=== PATIENT | male | born 1985 | race Caucasian/White ===

== ENCOUNTER 2022-11-11 07:11 | Day surgery (SDC) | payer MEDICAID ==
[2022-11-03 16:10] LABS: BASOPHILS # (AUTO) 0.1 X10'3 (0-0.2); BASOPHILS % (AUTO) 0.9 % (0-1); EOSINOPHILS # (AUTO) 0.2 X10'3 (0-0.9); EOSINOPHILS % (AUTO) 3.4 % (0-6); HEMATOCRIT 46.1 % (42.0-52.0); HEMOGLOBIN 15.8 g/dl (14.0-17.9); LYMPHOCYTES # (AUTO) 2.6 X10'3 (1.1-4.8); LYMPHOCYTES % (AUTO) 36.4 % (21-51); MEAN CORPUSCULAR HEMOGLOBIN 30.4 PG (27.0-31.0); MEAN CORPUSCULAR HGB CONC 34.2 g/dL (33.0-36.5); MEAN CORPUSCULAR VOLUME 88.9 FL (78-98); MEAN PLATELET VOLUME 7.4 FL (7.4-10.4); MONOCYTES # (AUTO) 0.8 X10'3 (0-0.9); MONOCYTES % (AUTO) 11.1 % (2-12); NEUTROPHILS # (AUTO) 3.4 X10'3 (1.8-7.7); NEUTROPHILS % (AUTO) 48.2 % (42-75); PLATELET COUNT 238 X10'3 (140-440); RED BLOOD COUNT 5.19 X10'6 (4.70-6.10); RED CELL DISTRIBUTION WIDTH 13.5 % (11.5-14.5); WHITE BLOOD COUNT 7.1 X10'3 (4.5-11.0)
[2022-11-03 16:27] LABS: ALANINE AMINOTRANSFERASE 70 U/L (12-78); ALBUMIN 3.8 G/DL (3.4-5.0); ALBUMIN/GLOBULIN RATIO 0.9 (1.1-1.5); ALKALINE PHOSPHATASE 63 IU/L (46-116); ANION GAP 11 (8-16); ASPARTATE AMINO TRANSFERASE 51 U/L (10-37); BILIRUBIN,TOTAL 0.5 MG/DL (0.1-1.0); BLOOD UREA NITROGEN 13 MG/DL (7-18); BUN/CREATININE RATIO 13.5 (10.0-20.0); CALCIUM 9.8 MG/DL (8.5-10.1); CHLORIDE 106 MMOL/L (99-107); CREATININE 0.96 MG/DL (0.60-1.10); GLUCOSE 111 MG/DL (70-104); POTASSIUM 3.8 MMOL/L (3.5-5.1); SODIUM 143 MMOL/L (135-145); TOTAL CARBON DIOXIDE 25.8 MMOL/L (24-32); TOTAL PROTEIN 7.9 G/DL (6.4-8.2); eGFR 89 ML/MIN
[~2022-11-11] VITALS: Ht 188 cm; Wt 228.8 kg
[~2022-11-11 07:11] MED LIST: BUPIVAcaine/PF 2.5 mg/ml (0.25%) 30ml vial ONE; BUSP30TA3 PO; CYCL5TAB79 PO; DOCUMENT DATE & TIME OF BETA-BLOCKER PO ONE; ESCI20TA39 PO; LEVO300T6 PO; LISD60CA PO; LOSA50TA64 PO; PROP10TA10 PO; SEMA1PEN3 SQ; SIMV10TA98 PO; ceFAZolin inj. 3,000 MG in normal saline 100ml IV soln 100 ML IV ONE; famotidine 20mg tablet PO ONE; ringers solution, lacted 1,000 ML IV SCH
[2022-11-11 07:45] VITALS: BP 150/82; PULSE 99; RESP 16; RESP 18; TEMP 98.3; O2SAT 98
[2022-11-11] MEDS ORDERED: midazolam 1 mg/ML 2ml injection ONE (10:28)
[2022-11-11] MEDS ORDERED: fentaNYL/PF 50MCG/1 ML 2ML syringe ONE (10:28)
[2022-11-11] MEDS ORDERED: LIDOcaine 0.5% (5mg/ml) 50ml vial ONE (10:29)
[2022-11-11] MEDS ORDERED: morphine 2 MG/ML inj. syringe IV PRN (10:35)
[2022-11-11] MEDS ORDERED: ringers solution, lacted 1,000 ML IV SCH (10:35)
[2022-11-11] MEDS ORDERED: proCHLORperazine 10 MG/2 ml inj IV PRN (10:35)
[2022-11-11] MEDS ORDERED: ondansetron/PF 4mg/2ml inj IV PRN (10:35)
[2022-11-11] MEDS ORDERED: meperidine/PF 25mg/ml syringe IV PRN ×3 (10:35)
[2022-11-11] MEDS ORDERED: morphine 4 MG/ML inj SYRINge IV PRN (10:35)
[2022-11-11 11:01] VITALS: BP 130/92; PULSE 100; RESP 14; O2SAT 97
--- NOTE | 2022-11-11 11:01 | NUR ---
Received from OR via [facility], accompanied by Anesthesiologist DR SHEN and report given by Anesthesiologist AND TRAFFIC MONITOR SPECIALIST. PT AWAKE, DENIES PAIN. RIGHT HAND/WRIST W/BIAS ANAT ZHOU. FINGERS PWD, FREEZER PERSON 1-2 SECONDS. Addendum: 11/11/22 at 1120 by Emerita Coleman RN Amended: Links added.
[2022-11-11 11:10] VITALS: BP 133/87; PULSE 94; RESP 23; O2SAT 94
[2022-11-11 11:20] VITALS: BP 143/95; PULSE 92; RESP 14; O2SAT 97
[2022-11-11 11:30] VITALS: BP 131/88; PULSE 88; RESP 15; O2SAT 98
[2022-11-11 11:40] VITALS: BP 136/86; PULSE 86; RESP 14; O2SAT 98
--- NOTE | 2022-11-11 11:51 | NUR ---
PT UP AND ABLE TO AMBULATE SAFELY, PT COMFORTABLE. D/C INSTRUCTIONS GIVEN AND GONE OVER W/PT WHO VERBALIZED UNDERSTANDING. PT D/CD TO HOME VIA W/C TO PRIVATE VEHICLE W/O INCIDENT. Addendum: 11/11/22 at 1211 by Emerita Coleman RN Amended: Links added.
== END 2022-11-11 11:51 | disposition home or self-care (01) ==
LOC: PAS 07:11 → EDSEX 11:15 → PAS 11:51
PROVIDERS: ATTEND Orthopaedic Surgery Hand Surgery
DX: G56.01 Carpal tunnel syndrome, right upper limb (principal); G47.30 Sleep apnea, unspecified; E66.01 Morbid (severe) obesity due to excess calories; Z68.44 Body mass index [BMI] 60.0-69.9, adult; E03.9 Hypothyroidism, unspecified; I10 Essential (primary) hypertension; F41.9 Anxiety disorder, unspecified; F43.10 Post-traumatic stress disorder, unspecified; Z98.890 Other specified postprocedural states; Z72.89 Other problems related to lifestyle; Z79.899 Other long term (current) drug therapy
CPT/HCPCS: 36415; 64721; 80053; 82948; 85025; 93005; J0690; J2250; J3010; J3490; J7030; J7120; Z7506; Z7512; A4215; A7000

== ENCOUNTER 2022-12-09 05:23 | Day surgery (SDC) | payer MEDICAID ==
[2022-12-02 10:47] LABS: BASOPHILS % (AUTO) 0.5 % (0-1); EOSINOPHILS # (AUTO) 0.3 X10'3 (0-0.9); EOSINOPHILS % (AUTO) 2.7 % (0-6); LYMPHOCYTES # (AUTO) 2.5 X10'3 (1.1-4.8); LYMPHOCYTES % (AUTO) 26.3 % (21-51); MEAN CORPUSCULAR HEMOGLOBIN 30.1 PG (27.0-31.0); MEAN CORPUSCULAR HGB CONC 33.6 g/dL (33.0-36.5); MEAN CORPUSCULAR VOLUME 89.7 FL (78-98); MEAN PLATELET VOLUME 7.8 FL (7.4-10.4); MONOCYTES # (AUTO) 0.8 X10'3 (0-0.9); MONOCYTES % (AUTO) 8.3 % (2-12); NEUTROPHILS # (AUTO) 5.9 X10'3 (1.8-7.7); NEUTROPHILS % (AUTO) 62.2 % (42-75); PRE OP HEMATOCRIT 45.2 % (42.0-52.0); PRE OP HEMOGLOBIN 15.2 g/dL (14.0-17.9); PRE OP PLATELET COUNT 247 X10'3 (140-440); PRE OP WHITE BLOOD COUNT 9.4 10'3 (4.8-10.8); RED BLOOD COUNT 5.04 X10'6 (4.70-6.10); RED CELL DISTRIBUTION WIDTH 13.1 % (11.5-14.5)
[2022-12-02 10:59] LABS: ALBUMIN 3.6 G/DL (3.4-5.0); ALBUMIN/GLOBULIN RATIO 0.8 (1.1-1.5); ALKALINE PHOSPHATASE 63 IU/L (46-116); BLOOD UREA NITROGEN 17 MG/DL (7-18); BUN/CREATININE RATIO 15.9 (10.0-20.0); CALCIUM 9.8 MG/DL (8.5-10.1); CHLORIDE 108 MMOL/L (99-107); CREATININE 1.07 MG/DL (0.60-1.10); PRE OP ALT 61 U/L (30-65); PRE OP ANION GAP 14 (8-16); PRE OP AST 45 U/L (10-37); PRE OP BILIRUB, TOTAL 0.5 MG/DL (0.0-1.0); PRE OP GLUCOSE 129 MG/DL (70-104); PRE OP SODIUM 143 MMOL/L (135-145); TOTAL CARBON DIOXIDE 21.1 MMOL/L (24-32); eGFR 79 ML/MIN
[2022-12-02 11:03] LABS: PRE OP POTASSIUM 3.9 MMOL/L (3.4-5.1)
[~2022-12-09] VITALS: Ht 188 cm; Wt 228.0 kg
[~2022-12-09 05:23] MED LIST changes: -BUPIVAcaine/PF 2.5 mg/ml (0.25%) 30ml vial ONE; +CELE-85 PO; -DOCUMENT DATE & TIME OF BETA-BLOCKER PO ONE; +HYDR-3972 PO; -ceFAZolin inj. 3,000 MG in normal saline 100ml IV soln 100 ML IV ONE; -famotidine 20mg tablet PO ONE
[2022-12-09] MEDS ORDERED: famotidine 20mg tablet PO ONE (05:30)
[2022-12-09] MEDS ORDERED: DOCUMENT DATE & TIME OF BETA-BLOCKER PO ONE (05:30)
[2022-12-09] MEDS ORDERED: ceFAZolin inj. 3,000 MG in normal saline 100ml IV soln 100 ML IV ONE (05:30)
[2022-12-09 06:15] VITALS: BP 140/95; PULSE 104; RESP 16; TEMP 98.6; O2SAT 98
[2022-12-09] MEDS ORDERED: BUPIVAcaine/PF 2.5mg/ml (0.25%) 10ml vial ONE (06:36)
[2022-12-09] MEDS ORDERED: fentaNYL/PF 50MCG/1 ML 2ML syringe ONE (07:50)
[2022-12-09] MEDS ORDERED: midazolam 1 mg/ML 2ml injection ONE (07:50)
[2022-12-09] MEDS ORDERED: LIDOcaine 0.5% (5mg/ml) 50ml vial ONE (07:50)
[2022-12-09] MEDS ORDERED: LIDOcaine 2% (20mg/ml) 5ml vial ONE (07:51)
[2022-12-09] MEDS ORDERED: propofol inj 20 ML IV ONE (07:51)
[2022-12-09] MEDS ORDERED: fentaNYL/PF 50MCG/1 ML 2ML syringe IV PRN ×2 (07:55)
[2022-12-09] MEDS ORDERED: ondansetron/PF 4mg/2ml inj IV PRN (07:55)
[2022-12-09] MEDS ORDERED: morphine 2 MG/ML inj. syringe IV PRN (07:55)
[2022-12-09] MEDS ORDERED: ringers solution, lacted 1,000 ML IV SCH (07:55)
[2022-12-09] MEDS ORDERED: labetalol 20mg/4ml (5mg/ml) syringe IV PRN (07:55)
[2022-12-09] MEDS ORDERED: morphine 4 MG/ML inj SYRINge IV PRN (07:55)
[2022-12-09 08:50] VITALS: BP 132/82; PULSE 90; RESP 16; O2SAT 98
--- NOTE | 2022-12-09 08:50 | NUR ---
Received from OR via BED, accompanied by Anesthesiologist and report given by Anesthesiologist. PATIENT WAKING UP, NO S/S OF PAIN, V/S WNL, SCD ON, 20G TO LUE RUE, LEFT WRIST DRESSING CDI W/ SLING. ICE AND ELEVATED RUE
[2022-12-09 09:00] VITALS: BP 129/79; PULSE 86; RESP 15; O2SAT 99
[2022-12-09 09:10] VITALS: BP 131/84; PULSE 87; RESP 14; O2SAT 98
[2022-12-09 09:20] VITALS: BP 127/81; PULSE 82; RESP 13; O2SAT 98
--- NOTE | 2022-12-09 09:20 | NUR ---
PATIENT A&OX4, DENIES PAIN, V/S WNL, SCD OFF, 20G TO LUE AND RUE D/C, LEFT WRIST DRESSING CDI W/ SLING. ICE AND ELEVATED RUE. I HAVE REVIEWED D/C INSTRUCTIONS WITH PATIENT INSTRUCTIONS WITH PATIENT AND THEY HAVE VERBALIZED UNDERSTANDING. PATIENT D/C HOME WITH ALL BELONGINGS AND FAMILY TRANSPORTED PATIENT HOME.
== END 2022-12-09 09:20 | disposition home or self-care (01) ==
LOC: PAS 05:23 → EDUNIT# 07:30 → EDSEX 07:30 → PAS 09:20
PROVIDERS: ATTEND Orthopaedic Surgery Hand Surgery
DX: G56.02 Carpal tunnel syndrome, left upper limb (principal); F41.9 Anxiety disorder, unspecified; I10 Essential (primary) hypertension; G47.33 Obstructive sleep apnea (adult) (pediatric); F43.10 Post-traumatic stress disorder, unspecified; E78.00 Pure hypercholesterolemia, unspecified; F90.9 Attention-deficit hyperactivity disorder, unspecified type; I73.00 Raynaud's syndrome without gangrene; E66.01 Morbid (severe) obesity due to excess calories; Z68.44 Body mass index [BMI] 60.0-69.9, adult; Z98.890 Other specified postprocedural states; Z72.89 Other problems related to lifestyle; Z79.899 Other long term (current) drug therapy
CPT/HCPCS: 29848; 36415; 80053; 82948; 85025; J0690; J2250; J2704; J3010; J3490; J7030; J7120; Z7506; Z7512; A4215; A7000